=== PATIENT | female | born 1995 | race Caucasian/White ===

== ENCOUNTER 2016-05-25 06:35 | Observation (INO) | payer OTHER ==
[2016-05-25] VITALS (7 sets, daily range): BP systolic 104–126; BP diastolic 43–73; PULSE 80–128; TEMP 99.6–102.6
[~2016-05-25] VITALS: Ht 180.3 cm; Wt 72.6 kg
[2016-05-25 08:01] LABS: ADJUSTED CALCIUM 9.2 mg/dL (8.4-10.2); ALANINE AMINOTRANSFERASE 44 U/L (9-52); ALBUMIN 4.4 gm/dL (3.5-5.0); ALKALINE PHOSPHATASE 39 U/L (50-136); ANION GAP 9 mmol/L (7-16); BILIRUBIN,TOTAL 1.4 mg/dL (0.0-1.0); BLOOD UREA NITROGEN 11 mg/dL (7-17); CALCIUM 9.5 mg/dL (8.4-10.2); CARBON DIOXIDE 29 mmol/L (22-30); CHLORIDE 101 mmol/L (98-107); CREATININE, serum 0.67 mg/dL (0.52-1.25); GLUCOSE 88 mg/dL (74-106); LIPASE 55 U/L (23-300); POTASSIUM 3.8 mmol/L (3.4-5.0); SODIUM 139 mmol/L (137-145); TOTAL PROTEIN 7.2 gm/dL (6.4-8.2)
[2016-05-25 08:02] LABS: C-REACTIVE PROTEIN < 0.5 mg/dL (0.0-0.9)
[2016-05-25 08:14] LABS: PH 7 (5-8); URINE APPEARANCE Clear; URINE BACTERIA Rare /hpf; URINE BILIRUBIN Negative (NEGATIVE); URINE BLOOD Negative (NEGATIVE); URINE COLOR Yellow; URINE GLUCOSE Negative (NEGATIVE); URINE KETONE Negative (NEGATIVE); URINE RBC 0-2 /hpf; URINE UROBILINOGEN Negative (NEGATIVE)
[2016-05-25 08:38] LABS: BASO # 0.1 (0.0-0.2); BASO % 0.4 % (0.0-2.0); EOS # 0.1 (0.0-0.7); GRAN # 10.5 (1.4-6.5); GRAN % 75.9 % (42.2-75.2); HEMATOCRIT 37.3 % (35.0-45.0); HEMOGLOBIN 12.7 g/dl (12.0-15.0); LYMPH # 2.1 (1.2-3.4); LYMPH % 15.1 % (20.0-51.0); MEAN CELL VOLUME 89 fl (80.0-95.0); MEAN CORPUSCULAR HEMOGLOBIN 30 pg (26.0-32.0); MEAN CORPUSCULAR HGB CONC 34 g/dl (33.0-37.0); MEAN PLATELET VOLUME 11.6 fl (7.4-10.4); MONO % 7.3 % (1.7-9.3); PLATELET COUNT 183 K/mm3 (130-400); REDCELL DISTRIBUTION WIDTH-CV 12.1 % (11.5-14.5); WHITE BLOOD COUNT 13.8 K/mm3 (4.8-10.8)
[2016-05-25] MEDS ORDERED: ZOFRAN ODT4 MG PO (20:24)
[2016-05-25] MEDS ORDERED: AMOXICILLIN 8751 TAB PO (20:24)
[2016-05-25] MEDS ORDERED: NORCO 325 MG-51 TAB PO (20:24)
[2016-05-26 01:45] VITALS: BP 105/58; PULSE 71; TEMP 99.9
[2016-05-26 04:36] VITALS: BP 102/41; PULSE 54; TEMP 98.2
[2016-05-26 10:02] VITALS: BP 103/48; PULSE 76; TEMP 98.1
== END 2016-05-26 11:05 | disposition home or self-care (01) ==
LOC: COL.ER 06:35 → SDCO 09:55 → SURG 09:55 → SDCO 15:04 → SURG 05-26 11:05
PROVIDERS: Physician Assistant
DX: K35.80 Unspecified acute appendicitis (principal)
CPT/HCPCS: G0378; J1100; J1170; J1885; J2405; J2543; J2550; J2704; J2710; J3010; J7030; J7050; J7120; Q9967

== ENCOUNTER → 2016-09-07 | Outpatient (REF) ==
[~2016-09-07] MED LIST: AMOXICILLIN 8751 TAB PO; NORCO 325 MG-51 TAB PO; ZOFRAN ODT4 MG PO
== END ==
LOC: WSOH 11:21
DX: Z02.1 Encounter for pre-employment examination (principal)

== ENCOUNTER → 2016-12-14 | Outpatient (REF) | LOC: WSOH 09:24 | DX: Z02.89 Encounter for other administrative examinations (principal) ==

== ENCOUNTER → 2016-12-17 | Outpatient (REF) | LOC: WSOH 15:29 | DX: Z02.89 Encounter for other administrative examinations (principal) ==

== ENCOUNTER → 2016-12-27 | Outpatient (REF) | LOC: WSOH 12:00 | DX: Z02.89 Encounter for other administrative examinations (principal) ==

== ENCOUNTER 2017-10-12 20:10 | Emergency (ER) | payer BC ==
[~2017-10-12] VITALS: Ht 182.9 cm; Wt 68.2 kg
[2017-10-12 20:13] VITALS: BP 124/78; TEMP 97.5
[2017-10-12] MEDS ORDERED: SYEDA 3 MG-0.031 TAB PO (20:55)
[2017-10-12 23:03] VITALS: PULSE 103
== END 2017-10-12 23:03 | disposition home or self-care (01) ==
LOC: COL.ER 20:10
DX: K56.41 Fecal impaction (principal)